=== PATIENT | female | born 1975 | race Caucasian/White ===

== ENCOUNTER 2018-05-24 11:47 | Emergency (ER) | payer MEDICAID ==
[2018-05-24] MEDS: KETOROLAC 30 MG INJ IM (12:51)
== END 2018-05-24 15:32 | disposition home or self-care (01) ==
LOC: E/R 11:47
DX: R07.89 Other chest pain (principal); I10 Essential (primary) hypertension; Z86.73 Personal history of transient ischemic attack (TIA), and cerebral infarction without residual deficits
CPT/HCPCS: 71045; 81025; 93005; 96372; 99284-25